=== PATIENT | female | born 1950 | race Caucasian/White ===

== ENCOUNTER 2016-12-24 10:19 | Day surgery (SDC) | payer MEDICARE, OTHER ==
[~2016-12-24] VITALS: Ht 157.5 cm; Wt 56.7 kg
[~2016-12-24 10:19] MED LIST: BUSP10TA2 PO; ESTR0.5T4 PO; IBUP-1827 PO; MECL-114 PO; Sodium Chloride LOK Flush 10 mL Syringe IV PRN; VENL75CA PO; fentaNYL-PF 50 mCg/mL 2 mL Inj IVPUSH PRN
[2016-12-24 10:49] VITALS: BP 145/74; PULSE 72; RESP 16; O2SAT 97
[2016-12-24] MEDS ORDERED: LAMO25TA PO (10:51)
[2016-12-24] MEDS: 0.9% Sodium Chloride 1,000 ML IV SCH ×3 (10:53→12:28)
--- NOTE | 2016-12-24 12:32 | PCM.ENDCOL ---
Colonoscopy Date of Service: Dec 24, 2016 Physician Irwin Dillard MD Pre Procedure Diagnosis: Screening Post Procedure Dx & Findings: Colon polyps hemorrhoids Procedure Colonoscopy PROCEDURE IN DETAIL: Prep adequate Withdrawal time 11 minutes After unremarkable rectal examination the Olympus video colonoscope was inserted patient's anal canal and was advanced to cecum. Landmarks were identified including the ileocecal valve and appendiceal orifice. Scope was withdrawn systematically. Visualized colonic mucosa showed healthy shiny mucosa with normal healthy-appearing vasculature. In the transverse colon, there was a 2 mm polyp was removed completely using cold snare. In the rectum there was a 1 mm polyp which was removed completely using cold forceps. In the rectum retroflexion was done which showed hemorrhoids. Anal canal was inspected carefully on the way out and hemorrhoids noted. Impression Polyps 2 status post complete removal Hemorrhoids Recommendation Repeat colonoscopy 5 years Presedation Assessment Risks and Benefits Informed consent was obtained from the patient after all risks and benefits including but not limited to drug reaction, infection, pain, bleeding, perforation, as well as alternatives were discussed. Patient monitoring Continuous pulse oximetry, cardiac monitoring, blood pressure monitoring, IV access, and oxygen at 2L per nasal cannula. Periprocedural Fentanyl: Fentanyl 125mcg Incrementally Midazolam: Midazolam 4mg Incrementally Complications There were no periprocedural complications identified. Post Procedure Plan Post Procedure Recommendations 1. Restrict activities today. 2. Resume normal activities in the morning. 3. Resume medications. 4. Patient informed of normal post procedure side effects as bloating, drowsiness, blood streaking in the stool. 5. average risk CRCS. If colon polyps come back as: -Hyperplastic- can repeat colonoscopy in 10 years -Tubular adenoma- repeat colonoscopy in 5 years -Tubulovillous/villous adenoma- repeat colonoscopy in 3 years -If any dysplasia- return to clinic as soon as possible 6. Please don't hesitate to call me with any questions. Irwin Dillard MD Dec 24, 2016 12:32
[2016-12-24 12:33] VITALS: BP 117/72; PULSE 72; RESP 16; O2SAT 98
[2016-12-24 12:44] VITALS: BP 111/62; PULSE 67; RESP 16; O2SAT 100
[2016-12-24 12:58] VITALS: BP 133/75; PULSE 63; RESP 16; O2SAT 100
--- NOTE | 2016-12-31 09:30 | PATH ---
SURGICAL PATHOLOGY Attending Physician:Irwin Dillard M.D. CASE STATUS: Signed Out PATIENT NAME: FLORA GARIBAY PID: [id number] : 1950 DATE COLLECTED:12/24/2016 00:00 SPECIMEN: 1: Colon, Polyp 2: Rectum, Biopsy CLINICAL HISTORY: 1). TRANSVERSE COLON POLYP 2). RECTAL POLYP FINAL DIAGNOSIS: 1. Transverse Colon, Polyp, Biopsy: Portion of tubular adenoma x1; negative for high-grade dysplasia. Superficial portion of colorectal mucosa x1 with no diagnostic abnormality. 2. Rectal Polyp: Hyperplastic polyp. ICD10: K63.5 GROSS DESCRIPTION: Received two formalin-filled containers, both labeled with the patient' s name: 1. In a container labeled "transverse colon polyp", are two portions of tissue which aggregate to 0.2 x 0.2 x 0.2 cm. The specimen is entirely submitted in cassette 1A. 2. In a container labeled "rectal polyp", the specimen consists of a 0.2 x 0.2 x 0.2 cm portion of tissue, which is entirely submitted in cassette 2A. (DC:[id number]) ICD-9 CODES: CPT CODES: 1: 98568 2: 32978 Electronically Signed Out Raquel Lopez MD [facility] Pathology [facility] [address], [place] [address] Technical component performed at [facility], [facility] [address], [place], [address]
== END 2016-12-24 23:59 | disposition home or self-care (01) ==
LOC: END 10:19
PROVIDERS: ATTEND Internal Medicine
DX: Z12.11 Encounter for screening for malignant neoplasm of colon (principal); D12.3 Benign neoplasm of transverse colon; K62.1 Rectal polyp
CPT/HCPCS: 45380; 45385; 88305; G0500; J2250; J3010; J7030